=== PATIENT | female | born 1995 | race Caucasian/White ===

== ENCOUNTER 2021-11-29 22:18 | Emergency (ER) | payer MEDICAID ==
[~2021-11-29] VITALS: Ht 160 cm; Wt 70.5 kg
[2021-11-29 22:23] VITALS: BP 122/70
[2021-11-29] MEDS ORDERED: CORTSUSP AD (22:38)
== END 2021-11-29 22:53 | disposition home or self-care (01) ==
LOC: EMS 22:21
DX: H60.501 Unspecified acute noninfective otitis externa, right ear (principal)
CPT/HCPCS: 99283

== ENCOUNTER 2023-04-23 18:05 | Emergency (ER) | payer MEDICAID ==
[~2023-04-23] VITALS: Ht 162.6 cm; Wt 63.6 kg
[~2023-04-23 18:05] MED LIST: CORTSUSP AD
[2023-04-23 18:25] LABS: COVID AG,FIA SOURCE NASAL SWAB
[2023-04-23 18:45] LABS: SARS-COV2 (COVID) ANTIGEN,FIA Negative (Negative)
[2023-04-23 18:47] LABS: INFLUENZA TYPE B NEGATIVE FOR TYPE B (NEGATIVE)
[2023-04-23 18:54] LABS: INFLUENZA TYPE A POSITIVE FOR TYPE A (NEGATIVE)
[2023-04-23 20:06] VITALS: BP 97/48; PULSE 117; RESP 19; TEMP 99.5
[2023-04-23] MEDS ORDERED: OXYM15SP57 NASAL (20:07)
[2023-04-23] MEDS ORDERED: OSEL75 PO (20:07)
== END 2023-04-23 20:09 | disposition home or self-care (01) ==
LOC: EMS 18:19
DX: J10.1 Influenza due to other identified influenza virus with other respiratory manifestations (principal); Z20.822 Contact with and (suspected) exposure to COVID-19
CPT/HCPCS: 87804; 99283

== ENCOUNTER 2023-09-26 10:49 | Emergency (ER) | payer MEDICAID ==
[~2023-09-26] VITALS: Ht 160 cm; Wt 65.0 kg
[~2023-09-26 10:49] MED LIST changes: +OSEL75 PO; +OXYM15SP57 NASAL
[2023-09-26 10:53] VITALS: TEMP 98.4
[2023-09-26] MEDS: ACETAMINOPHEN 500 MG TABLET PO ONE (11:26)
[2023-09-26 12:07] VITALS: BP 113/68; PULSE 74; RESP 16
== END 2023-09-26 12:42 | disposition home or self-care (01) ==
LOC: EMS 10:55
DX: S09.90XA Unspecified injury of head, initial encounter (principal); V89.2XXA Person injured in unspecified motor-vehicle accident, traffic, initial encounter; Y93.89 Activity, other specified; Y92.89 Other specified places as the place of occurrence of the external cause; Y99.8 Other external cause status
CPT/HCPCS: 70450; 99284

== ENCOUNTER → 2023-12-12 | Emergency (ER) | payer SELFPAY ==
[~2023-12-12] VITALS: Ht 160 cm; Wt 59.1 kg
[~2023-12-12] MED LIST changes: +ACET-66 PO; +IBUP-1554 PO; -OSEL75 PO; +OSEL75CA45 PO
[2023-12-12 18:25] VITALS: TEMP 98
[2023-12-12 21:57] LABS: BASOPHILS % (AUTO) 0.5 % (0.0-2.0); EOSINOPHILS % (AUTO) 1.9 % (1.0-6.0); HEMATOCRIT 40.5 % (36-46); HEMOGLOBIN 13.6 g/dL (12.0-16.0); LYMPHOCYTES # (AUTO) 2.4 K/uL (1.0-4.8); LYMPHOCYTES % (AUTO) 28.6 % (22.0-44.0); MEAN CORPUSCULAR HEMOGLOBIN 30.8 pg (26.0-34.0); MEAN CORPUSCULAR HGB CONC 33.5 G/dL (31.0-37.0); MEAN CORPUSCULAR VOLUME 92 fL (80-100); MONOCYTES # (AUTO) 0.7 K/uL (0.1-1.0); MONOCYTES % (AUTO) 7.8 % (2.0-9.0); NEUTROPHILS # (AUTO) 5.2 K/uL (1.8-7.7); NEUTROPHILS % (AUTO) 61.2 % (40.0-70.0); PLATELET COUNT (AUTO) 235 K/uL (150-450); RED BLOOD CELL COUNT(AUTO) 4.41 MIL/uL (4.00-5.20); RED CELL DISTRIBUTION WIDTH 13.6 % (11.5-14.5); WHITE BLOOD COUNT (AUTO) 8.5 K/uL (4.5-11.0)
[2023-12-12 22:00] VITALS: BP 119/61; PULSE 74; RESP 17
[2023-12-12 22:02] LABS: ANION GAP 6 mmol/L (8-16); CALCIUM, TOTAL 8.6 mg/dL (8.8-10.5); CARBON DIOXIDE 28 mmol/L (22-29); CHLORIDE 103 mmol/L (98-107); CREATININE 0.74 mg/dL (0.60-1.30); GLOMERULAR FILTR. RATE CALC > 60 mL/min (>60); GLUCOSE,RANDOM 81 mg/dL (70-110); POTASSIUM 4.1 mmol/L (3.5-5.1); SODIUM SERUM 137 mmol/L (136-145); UREA NITROGEN, BLOOD 14 mg/dL (7-18)
[2023-12-12 22:18] LABS: % IRON SATURATION 24.4 % (22-44)
== END | disposition still patient (30) ==
LOC: EMS 18:07
DX: S76.011A Strain of muscle, fascia and tendon of right hip, initial encounter (principal); S76.911A Strain of unspecified muscles, fascia and tendons at thigh level, right thigh, initial encounter; X58.XXXA Exposure to other specified factors, initial encounter; Y93.89 Activity, other specified; Y92.89 Other specified places as the place of occurrence of the external cause; Y99.8 Other external cause status
CPT/HCPCS: 80048; 83540; 83550; 85025; 99283

== ENCOUNTER 2025-01-06 10:01 | Emergency (ER) | payer MEDICAID ==
[~2025-01-06] VITALS: Ht 160 cm; Wt 69.5 kg
[~2025-01-06 10:01] MED LIST changes: -OXYM15SP57 NASAL; +OXYM15SP63 NASAL
[2025-01-06 10:54] LABS: PLATELET COUNT (AUTO) 300 K/uL (150-450); RED BLOOD CELL COUNT(AUTO) 4.72 MIL/uL (4.00-5.20); RED CELL DISTRIBUTION WIDTH 13.8 % (11.5-14.5); WHITE BLOOD COUNT (AUTO) 7.6 K/uL (4.5-11.0)
[2025-01-06 10:56] LABS: CALCIUM, TOTAL 8.8 mg/dL (8.8-10.5); CREATININE 0.55 mg/dL (0.60-1.30); GLOMERULAR FILTR. RATE CALC > 60 mL/min (>60); GLUCOSE,RANDOM 86 mg/dL (70-110); SODIUM SERUM 137 mmol/L (136-145); UREA NITROGEN, BLOOD 10 mg/dL (7-18)
[2025-01-06 10:57] LABS: APPEARANCE,URINE HAZY (CLEAR); GLUCOSE, URINE (UA) NEGATIVE (NEGATIVE); LEUKOCYTE ESTERASE ,URINE TRACE (NEGATIVE); NITRATE,URINE NEGATIVE (NEGATIVE); OCCULT BLOOD,URINE NEGATIVE (NEGATIVE); SPECIFIC GRAVITIY, URINE 1.010 (1.003-1.030)
[2025-01-06 11:12] LABS: HCG,QUANTITATIVE < 1 mIU/mL (0-6)
[2025-01-06 11:17] LABS: ASPARTATE AMINOTRANSFERASE 15.0 U/L (15-37); TOTAL PROTEIN, SERUM 8.0 g/dL (6.4-8.2)
[2025-01-06 11:20] LABS: SQUAMOUS EPITHELIAL CELL,UR Many /LPF (None Seen)
[2025-01-06] MEDS: MORPHINE SULFATE 2 MG/ML SYRINGE IVP ONE (13:36)
[2025-01-06] MEDS ORDERED: SODIUM CHLORIDE 0.9% 100 ML ONE (14:35)
[2025-01-06] MEDS ORDERED: IOHEXOL 350 MG/ML 100 ML VIAL ONE (14:35)
[2025-01-06 14:43] VITALS: TEMP 97.9
[2025-01-06] MEDS ORDERED: ONDA-104 PO (15:25)
[2025-01-06] MEDS ORDERED: AMOX-457 PO (15:47)
[2025-01-06 16:01] VITALS: BP 105/65; PULSE 68; RESP 16; O2SAT 98
== END 2025-01-06 16:03 | disposition home or self-care (01) ==
LOC: EMS 10:06
DX: R11.2 Nausea with vomiting, unspecified (principal); H66.92 Otitis media, unspecified, left ear; F12.90 Cannabis use, unspecified, uncomplicated; R19.7 Diarrhea, unspecified; N89.8 Other specified noninflammatory disorders of vagina; R10.9 Unspecified abdominal pain; Z79.899 Other long term (current) drug therapy
CPT/HCPCS: 99285; 74177; 96374; 80048; 80076; 81001; 83690; 84702; 85025; 36415; Q9967; J2270; J7050